=== PATIENT | female | born 1960 | race Caucasian/White ===

== ENCOUNTER → 2018-11-15 12:56 | Outpatient (BNVA) | payer MEDICARE, MEDICAID, SELFPAY | PROVIDERS: PCP Nurse Practitioner; Referring Provider Family Medicine; Visit Provider Student in an Organized Health Care Education/Training Program | DX: M16.12 Unilateral primary osteoarthritis, left hip (principal) | CPT/HCPCS: 99202; 99204 ==

== ENCOUNTER 2019-09-12 21:59 | Outpatient (REF) | payer MEDICARE, MEDICAID, SELFPAY ==
[2019-09-12 22:23] LABS: Absolute Basophil Count 0.03 k/cumm (0.0-0.2); Absolute Eosinophil Count 0.12 k/cumm (0.0-0.7); Absolute Lymphocyte Count 1.25 k/cumm (1.2-3.4); Absolute Monocyte Count 0.47 k/cumm (0.11-0.7); Absolute Neutrophil Count 3.96 k/cumm (1.2-6.7); Basophils % 0.5; Eosinophils % 2.1; HCT 40.5 % (36.0-46.0); HGB 12.7 g/dL (12.0-15.5); Lymphocytes % 21.4; Mean Corp. HGB Concentration 31.4 g/dL (32.0-36.0); Mean Corpuscular Hemoglobin 30.6 pg (27.0-33.0); Mean Corpuscular Volume 97.6 fL (80-95); Mean Platelet Volume 10.7 fL (8.0-11.0); Monocytes % 8.1; Neutrophils % 67.9; Platelet Count 277 x1000/uL (130-400); RBC 4.15 m/cumm (4.00-5.20); RBC Distribution Width 15.4 % (11.7-14.6); White Blood Cell Count 5.83 k/cumm (4.4-10.8)
[2019-09-12 22:33] LABS: ALT 28 U/L (14-59); AST 21 U/L (15-37); Albumin 3.6 g/dL (3.4-5.0); Alkaline Phosphatase 78 U/L (46-116); Anion Gap 10.1 mmol/L (3-11); BUN 20 mg/dL (7-18); Bilirubin, Total 0.3 mg/dL (0.2-1.0); CO2 24.9 mmol/L (21.0-32.0); CREATININE 0.71 mg/dL (0.55-1.02); Calcium 8.7 mg/dL (8.5-10.1); Chloride 107 mmol/L (98-107); Glucose 115 mg/dL (74-106); Potassium 4.3 mmol/L (3.5-5.1); Sodium 142 mmol/L (136-145); Total Protein 6.9 g/dL (6.4-8.2)
[2019-09-12 22:38] LABS: Hemoglobin A1C 5.8 % (3.8-5.6)
[2019-09-12 22:40] LABS: INR 2.5 (0.9-1.1); Prothrombin Time 24.3 sec (9.3-11.0)
== END 2019-09-12 22:19 ==
LOC: LBN 21:59
PROVIDERS: PCP Nurse Practitioner; Visit Provider Physician Assistant Medical
DX: R73.09 Other abnormal glucose (principal); I10 Essential (primary) hypertension; Z79.01 Long term (current) use of anticoagulants
CPT/HCPCS: 80053; 83036; 85025; 85610

== ENCOUNTER 2020-01-04 22:23 | Outpatient (REF) | payer MEDICARE, MEDICAID, SELFPAY ==
[2020-01-04 22:15] LABS: Hemoglobin A1C 5.9 % (<5.7)
[2020-01-04 22:34] LABS: INR 2.5 (0.9-1.1); Prothrombin Time 24.3 sec (9.3-11.0)
== END 2020-01-04 22:43 ==
LOC: LBN 22:23
PROVIDERS: PCP Nurse Practitioner; Visit Provider Physician Assistant Medical
DX: R73.03 Prediabetes (principal); Z79.01 Long term (current) use of anticoagulants
CPT/HCPCS: 83036; 85610

== ENCOUNTER 2020-06-20 13:54 | Outpatient (REF) | payer MEDICARE, MEDICAID, SELFPAY ==
[2020-06-20 15:22] LABS: Abs Immature Grans 0.01 10^3/uL (0.0-0.06); Absolute Basophil Count 0.05 10^3/uL (0.0-0.2); Absolute Eosinophil Count 0.09 10^3/uL (0.0-0.7); Absolute Lymphocyte Count 1.38 10^3/uL (1.2-3.4); Absolute Neutrophil Count 3.52 10^3/uL (1.2-6.7); Basophils % 0.9; Eosinophils % 1.7; HCT 39.5 % (36.0-46.0); HGB 12.8 g/dL (11.2-15.7); Immature Grans % 0.2; Lymphocytes % 25.3; MCH 31.3 pg (27.0-33.0); MCHC 32.4 % (32.0-36.0); MCV 96.6 fL (80-95); MPV 10.3 fL (8.0-11.0); Monocytes % 7.3; Neutrophils % 64.6; Nucleated RBC 0 %; Platelet Count 301 10^3/uL (130-400); RBC 4.09 10^6/uL (3.93-5.22); RDW-SD 53.5 fL; WBC 5.45 10^3/uL (4.4-10.8)
[2020-06-20 15:55] LABS: ALT 31 U/L (14-59); AST 14 U/L (15-37); Albumin 3.9 g/dL (3.4-5.0); Alkaline Phosphatase 74 U/L (46-116); Anion Gap 10.3 mmol/L (3-11); BUN 16 mg/dL (7-18); Bilirubin, Total 0.3 mg/dL (0.2-1.0); CO2 25.7 mmol/L (21.0-32.0); CREATININE 0.8 mg/dL (0.55-1.02); Calcium 8.8 mg/dL (8.5-10.1); Calculated LDL 151 mg/dL (<100); Chloride 105 mmol/L (98-107); Cholesterol 225 mg/dL (<200); Glucose 130 mg/dL (74-106); HDL Cholesterol 45 mg/dL (40-60); Potassium 4.3 mmol/L (3.5-5.1); Sodium 141 mmol/L (136-145); Total Protein 7.9 g/dL (6.4-8.2); Triglyceride 145 mg/dL (<150)
[2020-06-20 15:57] LABS: Hemoglobin A1C 5.7 % (<5.7)
== END 2020-06-20 13:55 | disposition home or self-care (01) ==
LOC: LBN 13:54
PROVIDERS: PCP Nurse Practitioner; Visit Provider Physician Assistant Medical
DX: I10 Essential (primary) hypertension (principal); R73.03 Prediabetes
CPT/HCPCS: 80053; 80061; 83036; 85025

== ENCOUNTER 2020-10-10 22:11 | Outpatient (REF) | payer MEDICARE, MEDICAID, SELFPAY ==
[2020-10-10 18:50] LABS: Iron 24 ug/dL (50-170)
[2020-10-10 18:51] LABS: ALT 21 U/L (14-59); AST 16 U/L (15-37); Albumin 3.8 g/dL (3.4-5.0); Alkaline Phosphatase 54 U/L (46-116); BUN 20 mg/dL (7-18); Bilirubin, Total 0.4 mg/dL (0.2-1.0); CREATININE 0.6 mg/dL (0.55-1.02); Chloride 107 mmol/L (98-107); Glucose 86 mg/dL (74-106); HCT 32.7 % (36.0-46.0); HGB 9.9 g/dL (11.2-15.7); MCH 27.7 pg (27.0-33.0); MCHC 30.3 % (32.0-36.0); MCV 91.6 fL (80-95); MPV 9.8 fL (8.0-11.0); Platelet Count 385 10^3/uL (130-400); Potassium 4.1 mmol/L (3.5-5.1); RBC 3.57 10^6/uL (3.93-5.22); RDW 15.7 % (11.7-14.6); RDW-SD 53.5 fL; Sodium 141 mmol/L (136-145); WBC 6.02 10^3/uL (4.4-10.8)
[2020-10-10 19:08] LABS: INR 1.5 (0.9-1.1); Prothrombin Time 14.9 sec (9.3-11.0)
== END 2020-10-10 22:12 | disposition home or self-care (01) ==
LOC: NCHCN 22:11
PROVIDERS: PCP Nurse Practitioner; Visit Provider Physician Assistant Medical
DX: I10 Essential (primary) hypertension (principal); Z79.01 Long term (current) use of anticoagulants; R79.89 Other specified abnormal findings of blood chemistry
CPT/HCPCS: 80053; 85027; 83540; 85610

== ENCOUNTER 2021-01-29 16:01 | Outpatient (REF) | payer MEDICARE, MEDICAID, SELFPAY ==
[2021-01-29 21:09] LABS: HCT 42.6 % (36.0-46.0); HGB 12.9 g/dL (11.2-15.7); MCH 27.4 pg (27.0-33.0); MCHC 30.3 % (32.0-36.0); MCV 90.6 fL (80-95); MPV 10.3 fL (8.0-11.0); Platelet Count 332 10^3/uL (130-400); RDW 19.6 % (11.7-14.6); RDW-SD 65.5 fL; WBC 7.01 10^3/uL (4.4-10.8)
[2021-01-29 21:19] LABS: Iron 74 ug/dL (50-170)
[2021-01-29 21:20] LABS: ALT 29 U/L (14-59); AST 21 U/L (15-37); Albumin 3.8 g/dL (3.4-5.0); Alkaline Phosphatase 68 U/L (46-116); Anion Gap 10.5 mmol/L (3-11); BUN 18 mg/dL (7-18); Bilirubin, Total 0.6 mg/dL (0.2-1.0); CO2 26.5 mmol/L (21.0-32.0); CREATININE 0.7 mg/dL (0.55-1.02); Chloride 106 mmol/L (98-107); Glucose 91 mg/dL (74-106); Magnesium 2.1 mg/dL (1.8-2.4); Potassium 4.1 mmol/L (3.5-5.1); Sodium 143 mmol/L (136-145); Total Protein 7.2 g/dL (6.4-8.2)
== END 2021-01-29 16:02 | disposition home or self-care (01) ==
LOC: LBN 16:01
PROVIDERS: PCP Nurse Practitioner; Visit Provider Physician Assistant Medical
DX: D64.9 Anemia, unspecified (principal); R00.2 Palpitations
CPT/HCPCS: 80053; 85027; 83540; 83735

== ENCOUNTER 2022-04-12 12:41 | Emergency (ER) | payer MEDICARE, MEDICAID, SELFPAY ==
[2022-04-12 12:45] VITALS: BP 154/83; PULSE 82; RESP 20; TEMP 36.9; O2SAT 100
[2022-04-12 12:47] VITALS: RESP 20
[2022-04-12] MEDS: Acetaminophen 325 MG TAB 650 MG PO (13:09)
[2022-04-12 13:21] LABS: Abs Immature Grans 0.01 10^3/uL (0.0-0.06); Absolute Basophil Count 0.03 10^3/uL (0.0-0.2); Absolute Eosinophil Count 0.06 10^3/uL (0.0-0.7); Absolute Lymphocyte Count 0.84 10^3/uL (1.2-3.4); Absolute Monocyte Count 0.27 10^3/uL (0.1-0.8); Absolute Neutrophil Count 3.19 10^3/uL (1.2-6.7); Basophils % 0.7; Eosinophils % 1.4; HCT 41.4 % (36.0-46.0); HGB 13.2 g/dL (11.2-15.7); Immature Grans % 0.2; Lymphocytes % 19.1; MCH 30.5 pg (27.0-33.0); MCHC 31.9 % (32.0-36.0); MCV 96 fL (80-95); MPV 9.4 fL (8.0-11.0); Monocytes % 6.1; Neutrophils % 72.5; Platelet Count 227 10^3/uL (130-400); RBC 4.33 10^6/uL (3.93-5.22)
[2022-04-12 13:36] LABS: ALT 16 U/L (14-59); AST 15 U/L (15-37); Albumin 3.8 g/dL (3.4-5.0); Alkaline Phosphatase 70 U/L (46-116); Anion Gap 7.3 mmol/L (3-11); BUN 13 mg/dL (7-18); Bilirubin, Total 0.5 mg/dL (0.2-1.0); CO2 29.7 mmol/L (21.0-32.0); CREATININE 0.7 mg/dL (0.55-1.02); Chloride 106 mmol/L (98-107); Estimated GFR 97.12 (mL/min/1.73m2); Glucose 107 mg/dL (74-106); Potassium 3.9 mmol/L (3.5-5.1); Sodium 143 mmol/L (136-145); Total Protein 7.3 g/dL (6.4-8.2)
--- NOTE | 2022-04-12 13:46 | W.ED.GENAD ---
Discharge Plan Disposition Patient Disposition: Home Condition: Stable Discharge Details Clinical Impression: Acute pain of left hip, Primary osteoarthritis of left hip Primary Care Provider: Clau Fajardo ED Provider: Juan Jose Basilio Home Meds and New Rx's Prescriptions: Continued warfarin 7.5 mg tablet 7.5 mg PO DAILY Label Comments: DOSE IS 7.5MG ON M W F AND SUN. DOSE IS 5MG ON T/ROBBIE/SAT. Rx Instructions: Sundays take 1.5 tabs cholecalciferol (vitamin D3) 50,000 unit capsule 50,000 unit PO QWEEK Label Comments: PT STATES DOSE IS TWICE WEEKLY Discharge Instructions Instructions: Hip Pain (ED) Additional Instructions: Given that your INR was noted to be slightly low today please take additional half dose this evening and resume your normal dosing with a 1-1/2 tabs tomorrow. Please then continue to take your normally scheduled medications and follow-up with your primary care provider for recheck of INR and further reassessment of your chronic hip pain. If you develop any new or significant worsening of symptoms feel free to return to the emergency department for reassessment otherwise follow-up with your primary care provider. Referrals: Clau Fajardo [Primary Care Provider] - Medical Decision Making Patient presenting to the emergency department for chief complaint of left hip and groin pain. Patient states chronic left hip pain with recommended surgery 5 years ago but due to her weight she has another 100 pounds to lose before they will consider surgery. She does state over the past 3 days she has noted some anterior thigh pain with walking but this morning woke up with worsening pain more towards the groin. Patient denies any injury or trauma chest pain shortness of breath or other symptoms. Physical exam shows obese female with significant palpable tenderness to the anterior left thigh and hip flexor. No medial leg pain, no calf tenderness, no appreciated swelling of the left leg more than the right leg. 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 At this time I do not suspect DVT given clinical findings that do not correlate with DVT and no tenderness to the deep venous system of the medial left leg. I suspect left hip flexor injury. We will still plan on checking patient's labs including INR given that she states variability in these labs. We will give patient acetaminophen pending results Review of labs is overall unremarkable with noted INR of 1.8. Patient's status thoughts around her normal but given that this is slightly low for therapeutic will have patient take additional half dose this evening and resume normal dosing. Patient states she already has recheck scheduled for Thursday of this next week which I feel is beneficial. At this time I do not feel the patient needs ultrasound imaging or radiological imaging as I feel this is more acute on chronic left hip pain. Patient was able to ambulate in the department and I do feel is safe for discharge home. After discussion of diagnosis and plan of care patient has no further needs, questions, or concerns and states clear understanding to return to the emergency department for any worsening symptoms. This documentation was generated using [email or web address] system, please disregard any oddities of phrase or misspellings. Lab Data Lab results reviewed: Yes I reviewed the patient's lab results. HPI General Mode of arrival: EMS. Date/Time Provider Initiated Documentation: 04/12/22 12:49. Limitations to Documentation: no limitations. Information obtained by: patient and RN notes reviewed. History of Present Illness 61 year old F presents to the emergency department with the chief complaint of left leg pain , Related Data Home Medications Medication Instructions Recorded Confirmed cholecalciferol (vitamin D3) 1,250 50,000 unit PO QWEEK 11/15/18 04/12/22 mcg (50,000 unit) capsule warfarin 7.5 mg tablet 7.5 mg PO DAILY 11/15/18 04/12/22 Allergies Allergy/AdvReac Type Severity Reaction Status Date / Time rofecoxib [From Vioxx] Allergy RECTAL Verified 04/12/22 12:49 BLEEDING General Stated Complaint: GenMedical ANGEL: 3 Review of Systems Constitutional Constitutional: Denies chills and Denies fever(s) Cardiovascular Cardiovascular: Denies chest pain and Denies dyspnea Respiratory Respiratory: Denies dyspnea Gastrointestinal Gastrointestinal: Denies abdominal pain Genitourinary Genitourinary: Reports system reviewed and no additional complaints, except as documented Musculoskeletal Musculoskeletal: Reports as per HPI, Reports arthralgias, Denies numbness and Denies tingling Integumentary/Breasts Skin/Breast: Denies erythema and Denies skin pain Neurologic Neurologic: Denies numbness and Denies tingling PFSH All Active Problems Acute pain of left hip (Acute) Primary osteoarthritis of left hip (Chronic) Social History Smoking/Tobacco Use Status: Never Smoking risk assessment performed?: Yes Alcohol Intake: never Drug use: Never Substance use type: does not use Do you feel safe at home: Yes Do you feel safe in your relationship?: Yes Exam Const General: cooperative, no acute distress and not ill appearing Orientation: alert, awake and oriented x3 Resp Effort & Inspection: normal respiratory effort, able to speak in complete sentences and no respiratory distress GI Inspection: large pannus and obesity Neuro General: patient alert, patient awake, patient oriented x3, moves all extremities and no focal motor deficits Extrem Left lower extremity: hip/thigh Details: tenderness Location: of the hip (hip flexor) Location: anteriorly and of the proximal upper leg Location: laterally and anteriorly, knee Details: no tenderness and no swelling, lower leg Details: no tenderness and no localized swelling and foot Details: vascular exam Details: dorsalis pedis pulse present and normal capillary refill Course Vital Signs Vital signs: Vital Signs Temperature 36.9 C 04/12/22 12:45 Pulse 82 04/12/22 12:45 Respiratory Rate 20 04/12/22 12:45 Blood Pressure 154/83 H 04/12/22 12:45 Pulse Oximetry 100 04/12/22 12:45 Temperature 36.9 C 04/12/22 12:45 Temperature Source Temporal Artery Scan 04/12/22 12:45 Pulse 82 04/12/22 12:45 Respiratory Rate 20 04/12/22 12:47 Respiratory Effort 04/12/22 12:47 Respiratory Depth Normal 04/12/22 12:47 Respiratory Pattern Normal 04/12/22 12:47 Blood Pressure 154/83 H 04/12/22 12:45 Blood Pressure Position Sitting 04/12/22 12:45 Pulse Oximetry 100 04/12/22 12:45 Oxygen Delivery Method Room Air 04/12/22 12:45 Oxygen Flow Rate 0 04/12/22 12:45 Pain Level 4 04/12/22 13:09 Lab/Test Results Lab/Test Results: Laboratory Tests Range/Units 04/12/22 04/12/22 13:17 13:17 WBC (4.4-10.8) 10^3/uL 4.40 RBC (3.93-5.22) 10^6/uL 4.33 Hgb (11.2-15.7) g/dL 13.2 Hct (36.0-46.0) % 41.4 MCV (80-95) fL 96 H MCH (27.0-33.0) pg 30.5 MCHC (32.0-36.0) % 31.9 L RDW (11.7-14.6) % 15.0 H Plt Count (130-400) 10^3/uL 227 MPV (8.0-11.0) fL 9.4 Immature Gran % 0.2 Neutrophils % 72.5 Lymphocytes % 19.1 Monocytes % 6.1 Eosinophils % 1.4 Basophils % 0.7 Nucleated RBC % (0.0-0.3) % 0.0 Absolute Neutrophils (1.2-6.7) 10^3/uL 3.19 Absolute Lymphocytes (1.2-3.4) 10^3/uL 0.84 L Absolute Monocytes (0.1-0.8) 10^3/uL 0.27 Absolute Eosinophils (0.0-0.7) 10^3/uL 0.06 Absolute Basophils (0.0-0.2) 10^3/uL 0.03 Sodium (136-145) mmol/L 143 Potassium (3.5-5.1) mmol/L 3.9 Chloride (98-107) mmol/L 106 Carbon Dioxide (21.0-32.0) mmol/L 29.7 Anion Gap (3-11) mmol/L 7.3 BUN (7-18) mg/dL 13 Creatinine (0.55-1.02) mg/dL 0.7 Est GFR (CKD-EPI 2020) (mL/min/1.73m2) 97.12 Glucose (74-106) mg/dL 107 H Calcium (8.5-10.1) mg/dL 9.0 Total Bilirubin (0.2-1.0) mg/dL 0.5 AST (15-37) U/L 15 ALT (14-59) U/L 16 Alkaline Phosphatase (46-116) U/L 70 Total Protein (6.4-8.2) g/dL 7.3 Albumin (3.4-5.0) g/dL 3.8
[2022-04-12 14:06] LABS: INR 1.8 (0.9-1.1); PTT Activated 31.2 sec (21.0-27.5); Prothrombin Time 17.6 sec (9.3-11.0)
== END 2022-04-12 14:31 | disposition home or self-care (01) ==
PROVIDERS: Emergency Provider Nurse Practitioner Family; PCP Nurse Practitioner
DX: M16.12 Unilateral primary osteoarthritis, left hip (principal); R10.30 Lower abdominal pain, unspecified; E66.9 Obesity, unspecified
CPT/HCPCS: 36415; 80053; 99282; 85025; 85610; 85730

== ENCOUNTER 2022-12-06 12:30 | Emergency (ER) | payer MEDICARE, MEDICAID, SELFPAY ==
[2022-12-06 12:40] VITALS: BP 139/62; PULSE 87; RESP 18; TEMP 36.8; O2SAT 96
--- NOTE | 2022-12-06 13:00 | DI.US_ITS ---
Exam(s) US LOWER EXTREMITY VENOUS LT EXAM: US LOWER EXTREMITY VENOUS LT CLINICAL HISTORY: R/O DVT TECHNIQUE: Grayscale, color, and doppler imaging of the deep venous system of the left lower extremi ty was performed. COMPARISON: No exams were available for comparison FINDINGS: There is no evidence of intraluminal thrombus and there is normal compression and augmentation demons trated within the common femoral vein, femoral vein, and popliteal vein. In the ipsilateral calf the interrogated veins also exhibit normal compression/ augmentation properti es. The ipsilateral saphenofemoral junction is patent. IMPRESSION: 1. No evidence of DVT in the left lower extremity. DATA REPOSITORY:
--- NOTE | 2022-12-06 14:17 | ED.GENADUL_ITS ---
Discharge Plan Disposition Patient Disposition: Home Condition: Stable Discharge Details Clinical Impression: Left leg pain Primary Care Provider: Clau Fajardo ED Provider: Samantha Sapp Home Meds and New Rx's Prescriptions: No Action warfarin 7.5 mg tablet 7.5 mg PO DAILY Patient Comments: DOSE IS 7.5MG ON M W F AND SUN. DOSE IS 5MG ON T/ROBBIE/SAT. Rx Instructions: Sundays take 1.5 tabs cholecalciferol (vitamin D3) 50,000 unit capsule 50,000 unit PO QWEEK Patient Comments: PT STATES DOSE IS TWICE WEEKLY Discharge Instructions Instructions: Leg Pain (ED) Additional Instructions: No evidence of DVT on ultrasound. PLease keep elevated. Follow up with primary care provider in 3-5 days. Return to ED sooner if any worsening or concerns. Increase oral fluids. Please take Tylenol or Ibuprofen with food every 4-6 hours as needed for pain and swelling. Alternate ice and heat. Referrals: Clau Fajardo [Primary Care Provider] - 3 days Discharge Data Discharge Date/Time-TO BE ENTERED AT DEPARTURE: 12/06/22 16:17 Medical Decision Making 61 year old female presents to the ED with chief complaint of left lower leg pain which came on last night, she has taken Tramadol last at 1000 with little to no relief. Denies Injury or falls, is taking warfarin for previous DVT. She does have a history of osteoarthritis to her left hip. Other past medical history include obesity. US venous doppler ordered to rule out DVT, Hydrocodone ordered. No obvious deformity, no pitting edema noted. US is negative for DVT patient is c/o pain, will give an additional Hydrocodone. This text was generated using [employer] dictation system, please disregard any oddities of phrase or misspellings. HPI General Mode of arrival: wheelchair (Walker) . Date/Time Provider Initiated Documentation: 12/06/22 12:58 . Limitations to Documentation: no limitations . Information obtained by: patient, RN notes reviewed and old records reviewed . HPI Narrative: 61 year old female presents to the ED with chief complaint of left lower leg pain which came on last night, she has taken Tramadol last at 1000 with little to no relief. Denies Injury or falls, is taking warfarin for previous DVT. She does have a history of osteoarthritis to her left hip. Other past medical history include obesity. Related Data Home Medications Medication Instructions Recorded Confirmed cholecalciferol (vitamin D3) 1,250 50,000 unit PO QWEEK 11/15/18 04/12/22 mcg (50,000 unit) capsule warfarin 7.5 mg tablet 7.5 mg PO DAILY 11/15/18 04/12/22 Allergies Allergy/AdvReac Type Severity Reaction Status Date / Time rofecoxib [From Vioxx] Allergy RECTAL Verified 04/12/22 12:49 BLEEDING General Stated Complaint: Vascular ANGEL: 4 Review of Systems All systems reviewed & are unremarkable except as noted in HPI and below Musculoskeletal Musculoskeletal: Reports as per HPI PFSH All Active Problems (Updated 12/06/22 @ 15:45 by Samantha Sapp NP) Left leg pain (Acute) Primary osteoarthritis of left hip (Chronic) Social History Smoking/Tobacco Use Status: Never Smoking risk assessment performed?: Yes Alcohol Intake: never Drug use: Never Substance use type: does not use Housing: house Do you feel safe at home: Yes Do you feel safe in your relationship?: Yes Exam Extrem General: normal to inspection Right upper extremity: normal to inspection Left upper extremity: normal to inspection Right lower extremity: normal to inspection Left lower extremity: normal to inspection Other: Patient has very large lower extremities, no obvious erythema, edema, or deformity, Distal CMS intact. Course Vital Signs Vital signs: Vital Signs Temperature 36.8 C 12/06/22 12:40 Pulse 87 12/06/22 12:40 Respiratory Rate 18 12/06/22 12:40 Blood Pressure 139/62 12/06/22 12:40 Pulse Oximetry 96 12/06/22 12:40 Temperature 36.8 C 12/06/22 12:40 Pulse 87 12/06/22 12:40 Respiratory Rate 18 12/06/22 12:40 Respiratory Effort Normal, Non-Labored 12/06/22 13:56 Blood Pressure 139/62 12/06/22 12:40 Blood Pressure Position Supine 12/06/22 12:40 Pulse Oximetry 96 12/06/22 12:40 Pain Level 8 12/06/22 12:40
[2022-12-06] MEDS: HYDROcodone 5/Acetaminophen 325 TAB PO ×2 (14:32→15:51)
[2022-12-06 15:51] VITALS: BP 125/75; PULSE 69; TEMP 36.5; O2SAT 94
[2022-12-06 15:58] VITALS: RESP 18
--- NOTE | 2022-12-06 16:16 | DI.VRAD_ITS ---
PROCEDURE INFORMATION: Exam: US Duplex Left Lower Extremity Veins, Limited Exam date and time: 12/06/2022 3:23 PM Age: 61 years old Clinical indication: Pain; Leg, lower; Left TECHNIQUE: Imaging protocol: Real-time duplex ultrasound of the left extremity with 2-D hebert scale, color Doppler flow and spectral waveform analysis including responses to compression and other maneuvers (when performed) with image documentation. Limited exam focused on the left lower extremity veins. Total images: 33 COMPARISON: No relevant prior studies available. FINDINGS: Left deep veins: Unremarkable. The common femoral, femoral, proximal profunda femoral and popliteal veins are patent without thrombus. Normal Doppler waveforms. Normal compressibility and/or augmentation response. Superficial veins: Unremarkable. Saphenofemoral junction is patent without thrombus. Soft tissues: Unremarkable. IMPRESSION: No evidence of deep vein thrombosis. Dictated and Authenticated by: Justino De La O MD. Ordering:ZACARIAS Singh MD
== END 2022-12-06 16:17 | disposition home or self-care (01) ==
PROVIDERS: Emergency Provider Registered Nurse Emergency; PCP Nurse Practitioner
DX: M79.605 Pain in left leg (principal)
CPT/HCPCS: 99284; 93971